=== PATIENT | male | born 1980 | race African-American/Black ===

== ENCOUNTER 2017-02-02 13:13 | Emergency (ER) | payer BC ==
[2017-02-02] MEDS ORDERED: Aspirin Low Dose CHEW TAB* 81 MG PO ONE (13:32)
[2017-02-02 13:50] LABS: Hematocrit 43 % (42-52); Hemoglobin 14.2 g/dl (14.0-18.0); Mean Corpuscular HGB Conc 33 g/dl (31-36); Mean Corpuscular Hemoglobin 29 pg (27-31); Mean Corpuscular Volume 88 fL (80-94); Mean Platelet Volume 11 um3 (7.4-10.4); Red Blood Count 4.85 10^6/ul (4.0-5.4); Red Cell Distribution Width 14 % (10.5-15); White Blood Count 4.9 10^3/ul (3.5-10.8)
[2017-02-02 14:06] LABS: Albumin 4.6 g/dL (3.2-5.2); BUN/Creatinine Ratio 11.2 (8-20); Calcium 9.7 mg/dL (8.6-10.3); EGFR Non-African American 77.8 (>60); Globulin 3.1 g/dL (2-4); Potassium 3.6 mmol/L (3.5-5.0); Total Bilirubin 0.5 mg/dL (0.2-1.0); Total Protein 7.7 g/dL (6.4-8.9)
--- NOTE | 2017-02-02 15:24 | RAD ---
INDICATION: Chest pain COMPARISON: None TECHNIQUE: PA and lateral views of the chest were obtained. FINDINGS: The heart and mediastinum are normal in size and contour. The lungs are grossly clear. There is no evidence of large pleural effusion. Visualized bones are normal for the patient's age. There is no radiographic evidence of free air beneath the diaphragm IMPRESSION: No radiographic evidence of acute cardiopulmonary disease.
[2017-02-02 17:15] VITALS: BP 147/92
--- NOTE | 2017-02-02 17:56 | ED ---
Annie Lovell Anna, scribed for Benedict Elias MD on 02/02/17 at 1332 . HPI Chest Pain - HPI Summary HPI Summary: Patient is a 37 y/o male coming to [facility] presenting with left-sided chest pain that began at 1100 while he was sitting at work. He describes the pain as severity 10/10 two hours ago, now down to 6/10. He additionally felt lightheaded and felt squeezing pain down his left arm. The pain is not exacerbated by deep breaths. He has been seeing Dr. Torre because of heart palpitations at night and is supposed to start on HTN medication if his HTN does not resolve in two weeks. - History of Current Complaint Chief Complaint: EDChestPainROMI Time Seen by Provider: 02/02/17 13:21 Hx Obtained From: Patient Onset/Duration: Started Hours Ago, Still Present Pain Intensity: 6 Pain Scale Used: 0-10 Numeric - Allergy/Home Medications Allergies/Adverse Reactions: Allergies Allergy/AdvReac Type Severity Reaction Status Date / Time Bee Venom Allergy SHOCK Verified 10/10/14 13:24 PEANUTS Allergy SHOCK Uncoded 10/10/14 13:24 Home Medications: Home Medications Cholecalciferol TAB* [Vitamin D TAB*] 1,000 unit PO Q21D 02/02/17 [History Confirmed 02/02/17] Epinephrine [Epipen 2-Chadwick] 0.3 mg IM ONCE PRN 02/02/17 [History Confirmed ] PMH/Surg Hx/FS Hx/Imm Hx Endocrine/Hematology History: Denies: Hx Diabetes Cardiovascular History: Reports: Hx Hypertension Denies: Hx Hypotension, Hx Pacemaker/ICD, Other Cardiovascular Problems/ Disorders Sensory History: Reports: Hx Contacts or Glasses - GLASSES Denies: Hx Hearing Aid Opthamlomology History: Reports: Hx Contacts or Glasses - GLASSES Psychiatric History: Denies: Hx Panic Disorder - Surgical History Surgery Procedure, Year, and Place: TONSILS Hx Anesthesia Reactions: No Infectious Disease History: No Infectious Disease History: Denies: Traveled Outside the [place] in Last 30 Days - Family History Known Family History: Positive: Hypertension - Hx in father Negative: Cardiac Disease - Social History Occupation: Employed Full-time Lives: With Family Alcohol Use: Daily Alcohol Amount: 1 PER DAY Substance Use Type: Reports: Marijuana Substance Use Comment - Amount & Last Used: DAILY Smoking Status (MU): Former Smoker Amount Used/How Often: 20-30 CIGS TOTAL Have You Smoked in the Last Year: No Review of Systems Positive: Chest Pain Positive: Arthralgia Psychological: Normal All Other Systems Reviewed And Are Negative: Yes Physical Exam Triage Information Reviewed: Yes Vital Signs On Initial Exam: Initial Vitals Temp Pulse Resp BP Pulse Ox 98.4 F 58 16 157/78 100 02/02/17 13:16 02/02/17 13:16 02/02/17 13:16 02/02/17 13:16 02/02/17 13:16 Vital Signs Reviewed: Yes Appearance: Positive: Well-Appearing, No Pain Distress Skin: Positive: Warm, Skin Color Reflects Adequate Perfusion, Dry Head/Face: Positive: Normal Head/Face Inspection Eyes: Positive: Normal ENT: Positive: Normal ENT inspection Neck: Positive: Supple, Nontender Respiratory/Lung Sounds: Positive: Clear to Auscultation, Breath Sounds Present Cardiovascular: Positive: RRR Abdomen Description: Positive: Nontender, Soft Bowel Sounds: Positive: Present Musculoskeletal: Positive: Normal Neurological: Positive: Normal Psychiatric: Positive: Affect/Mood Appropriate Diagnostics - Vital Signs Vital Signs Temp Pulse Resp BP Pulse Ox 02/02/17 13:16 98.4 F 58 16 157/78 100 - Laboratory Lab Results: Lab Results 02/02/17 02/02/17 02/02/17 Range/Units 13:35 13:35 13:35 WBC 4.9 (3.5-10.8) 10^3/ul RBC 4.85 (4.0-5.4) 10^6/ul Hgb 14.2 (14.0-18.0) g/dl Hct 43 (42-52) % MCV 88 (80-94) fL MCH 29 (27-31) pg MCHC 33 (31-36) g/dl RDW 14 (10.5-15) % Plt Count 187 (150-450) 10^3/ul MPV 11 H (7.4-10.4) um3 Neut % (Auto) 47.7 (38-83) % Lymph % (Auto) 37.9 (25-47) % [place] % (Auto) 9.2 H (1-9) % Eos % (Auto) 4.5 (0-6) % Baso % (Auto) 0.7 (0-2) % Absolute Neuts (auto) 2.4 (1.5-7.7) 10^3/ul Absolute Lymphs (auto) 1.9 (1.0-4.8) 10^3/ul Absolute Monos (auto) 0.5 (0-0.8) 10^3/ul Absolute Eos (auto) 0.2 (0-0.6) 10^3/ul Absolute Basos (auto) 0 (0-0.2) 10^3/ul Absolute Nucleated RBC 0.01 10^3/ul Nucleated RBC % 0.2 D-Dimer, Quantitative (Less Than 230) ng/mL Sodium 137 (133-145) mmol/L Potassium 3.6 (3.5-5.0) mmol/L Chloride 103 (101-111) mmol/L Carbon Dioxide 27 (22-32) mmol/L Anion Gap 7 (2-11) mmol/L BUN 12 (6-24) mg/dL Creatinine 1.07 (0.67-1.17) mg/dL Est GFR ( Amer) 100.0 (>60) Est GFR (Non-Af Amer) 77.8 (>60) BUN/Creatinine Ratio 11.2 (8-20) Glucose 101 H (70-100) mg/dL Lactic Acid 1.0 (0.5-2.0) mmol/L Calcium 9.7 (8.6-10.3) mg/dL Total Bilirubin 0.50 (0.2-1.0) mg/dL AST 29 (13-39) U/L ALT 38 (7-52) U/L Alkaline Phosphatase 92 (34-104) U/L Troponin I 0.00 (<0.04) ng/mL Total Protein 7.7 (6.4-8.9) g/dL Albumin 4.6 (3.2-5.2) g/dL Globulin 3.1 (2-4) g/dL Albumin/Globulin Ratio 1.5 (1-3) 02/02/17 02/02/17 Range/Units 13:35 16:02 WBC (3.5-10.8) 10^3/ul RBC (4.0-5.4) 10^6/ul Hgb (14.0-18.0) g/dl Hct (42-52) % MCV (80-94) fL MCH (27-31) pg MCHC (31-36) g/dl RDW (10.5-15) % Plt Count (150-450) 10^3/ul MPV (7.4-10.4) um3 Neut % (Auto) (38-83) % Lymph % (Auto) (25-47) % [place] % (Auto) (1-9) % Eos % (Auto) (0-6) % Baso % (Auto) (0-2) % Absolute Neuts (auto) (1.5-7.7) 10^3/ul Absolute Lymphs (auto) (1.0-4.8) 10^3/ul Absolute Monos (auto) (0-0.8) 10^3/ul Absolute Eos (auto) (0-0.6) 10^3/ul Absolute Basos (auto) (0-0.2) 10^3/ul Absolute Nucleated RBC 10^3/ul Nucleated RBC % D-Dimer, Quantitative < 200 (Less Than 230) ng/mL Sodium (133-145) mmol/L Potassium (3.5-5.0) mmol/L Chloride (101-111) mmol/L Carbon Dioxide (22-32) mmol/L Anion Gap (2-11) mmol/L BUN (6-24) mg/dL Creatinine (0.67-1.17) mg/dL Est GFR ( Amer) (>60) Est GFR (Non-Af Amer) (>60) BUN/Creatinine Ratio (8-20) Glucose (70-100) mg/dL Lactic Acid (0.5-2.0) mmol/L Calcium (8.6-10.3) mg/dL Total Bilirubin (0.2-1.0) mg/dL AST (13-39) U/L ALT (7-52) U/L Alkaline Phosphatase (34-104) U/L Troponin I 0.00 (<0.04) ng/mL Total Protein (6.4-8.9) g/dL Albumin (3.2-5.2) g/dL Globulin (2-4) g/dL Albumin/Globulin Ratio (1-3) Result Diagrams: 02/02/17 13:35 02/02/17 13:35 Lab Statement: Any lab studies that have been ordered have been reviewed, and results considered in the medical decision making process. - Radiology CXR Xray Interpretation: No Acute Changes Radiology Interpretation Completed By: Radiologist - IMPRESSION: No radiographic evidence of acute cardiopulmonary disease. - EKG 1323 Cardiac Rate: NL EKG Rhythm: Sinus Rhythm ST Segment: Normal Ectopy: None Re-Evaluation - Re-Evaluation First Eval Re-Evaluation Time: 15:47 Comment: Discussed results and plan of care with patient and family. Patient and family agree with plan. Second Eval Re-Evaluation Time: 16:51 Comment: Discussed results of repeat troponin and plan for follow-up care. Patient and family agree to follow up with PCP. Chest Pain Course/Dx - Course Course Of Treatment: Mr. Wong presented with an atypical pain, He has a Hx of HTN that is being watched at this point. His W/U including two trops and ecg was negative and his EDACS score was low risk at 13. I recommended F/U with Dr. Echavarria. - Diagnoses Provider Diagnoses: Chest pain Discharge - Discharge Plan Condition: Stable Disposition: HOME Patient Education Materials: Chest Pain (ED) Referrals: Lopez Kilgore MD [Primary Care Provider] - Additional Instructions: Follow up with primary care provider within 48 hours. Return to the emergency department for any new or worsening symptoms. The documentation as recorded by the Annie contreras Anna accurately reflects the service I personally performed and the decisions made by , Benedict Elias MD.
== END 2017-02-02 17:13 | disposition home or self-care (01) ==
LOC: ED 13:13
DX: R07.9 Chest pain, unspecified (principal); Z87.891 Personal history of nicotine dependence
CPT/HCPCS: 36415; 71020; 80053; 83605; 84484; 85025; 85379; 93005; 99283; A9270-GY

== ENCOUNTER 2018-08-17 20:23 | Emergency (ER) | payer BC ==
[2018-08-17 20:37] VITALS: BP 138/85
[2018-08-17] MEDS ORDERED: Albuterol 2.5 MG/3 ML NEB.SOL* (0.083%) INH ONE (20:41)
--- NOTE | 2018-08-17 20:49 | ED ---
Palpitations / Dysrhythmia - HPI Summary HPI Summary: patient complaining of palpitations and sweats, chills in the last few days. had respiratory illness one week ago and since that time has noted some wheezing - History of Current Complaint Chief Complaint: UCGeneralIllness Time Seen by Provider: 08/17/18 20:31 Hx Obtained From: Patient Onset/Duration: Sudden Onset, Lasting Days Timing: Intermittent Episodes Lasting: - 10-15 min utes Severity Initially: Moderate Severity Currently: None Character: Fluttering Aggravating: Nothing Alleviating: Nothing Associated Signs & Symptoms: Negative - Risk Factors Cardiac: Negative Pulmonary Embolism: Negative Atrial Fibrillation: Negative - Allergy/Home Medications Allergies/Adverse Reactions: Allergies Allergy/AdvReac Type Severity Reaction Status Date / Time MS Bee Venom [Bee Venom] Allergy SHOCK Verified 08/17/18 20:30 PEANUTS Allergy SHOCK Uncoded 08/17/18 20:30 PMH/Surg Hx/FS Hx/Imm Hx Previously Healthy: Yes Endocrine/Hematology History: Denies: Hx Diabetes Cardiovascular History: Reports: Hx Hypertension Denies: Hx Hypotension, Hx Pacemaker/ICD, Other Cardiovascular Problems/ Disorders Sensory History: Reports: Hx Contacts or Glasses - GLASSES Denies: Hx Hearing Aid Opthamlomology History: Reports: Hx Contacts or Glasses - GLASSES Psychiatric History: Denies: Hx Panic Disorder - Surgical History Surgery Procedure, Year, and Place: TONSILS Hx Anesthesia Reactions: No Infectious Disease History: No Infectious Disease History: Denies: Traveled Outside the [place] in Last 30 Days - Family History Known Family History: Positive: Hypertension - Hx in father Negative: Cardiac Disease - Social History Alcohol Use: Weekly Alcohol Amount: 1 PER DAY Substance Use Type: Reports: Marijuana Substance Use Comment - Amount & Last Used: DAILY Smoking Status (MU): Former Smoker Amount Used/How Often: 20-30 CIGS TOTAL Have You Smoked in the Last Year: No Review of Systems Constitutional: Negative Eyes: Negative ENT: Negative Positive: Palpitations Positive: Other - wheezing Gastrointestinal: Negative Genitourinary: Negative Musculoskeletal: Negative Skin: Negative Neurological: Negative Psychological: Normal All Other Systems Reviewed And Are Negative: Yes Physical Exam Triage Information Reviewed: Yes Vital Signs On Initial Exam: Initial Vitals Temp Pulse Resp BP Pulse Ox 37.1 C 75 18 138/85 97 08/17/18 20:31 08/17/18 20:31 08/17/18 20:31 08/17/18 20:31 08/17/18 20:31 Vital Signs Reviewed: Yes Appearance: Positive: Well-Appearing Skin: Positive: Warm, Dry Head/Face: Positive: Normal Head/Face Inspection Eyes: Positive: Normal ENT: Positive: Normal ENT inspection Neck: Positive: Supple Respiratory/Lung Sounds: Positive: Wheezes - bilateral expiratory wheezing, few rales left lower lobe Cardiovascular: Positive: S1, S2 Abdomen Description: Positive: Nontender Bowel Sounds: Positive: Present Musculoskeletal: Positive: Normal Neurological: Positive: Normal Diagnostics - Vital Signs Vital Signs Temp Pulse Resp BP Pulse Ox 08/17/18 20:31 37.1 C 75 18 138/85 97 - Laboratory Lab Statement: Any lab studies that have been ordered have been reviewed, and results considered in the medical decision making process. Course/Dx - Diagnoses Provider Diagnoses: Heart palpitations, Asthma, Herpetic gingivostomatitis Discharge - Sign-Out/Discharge Documenting (check all that apply): Patient Departure All imaging exams completed and their final reports reviewed: Yes - Discharge Plan Condition: Fair Disposition: HOME Prescriptions: Albuterol HFA INHALER* [Ventolin HFA Inhaler*] 2 puff INH Q6H PRN #1 mdi PRN Reason: Cough amLODIPine TAB* [Norvasc 5 mg TAB*] 10 mg PO DAILY #90 tab Lisinopril 10 mg PO DAILY #90 tablet ValACYclovir (*) [Valtrex 1 GM(*)] 2 gm PO BID #4 tab Patient Education Materials: Heart Palpitations (ED), Asthma (DC) Referrals: Lopez Kilgore MD [Primary Care Provider] - - Billing Disposition and Condition Condition: FAIR Disposition: Home
--- NOTE | 2018-08-18 07:57 | RAD ---
Indication: Cough, fever. 2 views the chest including dual energy PA views demonstrate no mediastinal shift. Heart is of normal size and configuration. Lung basurto are clear. When compared to previous exam of February 02, 2017 no significant change is noted. IMPRESSION: No active cardiopulmonary disease is noted. R0
== END 2018-08-17 21:40 | disposition home or self-care (01) ==
LOC: UCEAST 20:23
DX: R00.2 Palpitations (principal); J45.909 Unspecified asthma, uncomplicated; B00.2 Herpesviral gingivostomatitis and pharyngotonsillitis; Z91.030 Bee allergy status; Z91.010 Allergy to peanuts; Z87.891 Personal history of nicotine dependence
CPT/HCPCS: 71046; 93005; 99212; G0463

== ENCOUNTER 2019-05-30 14:10 | Emergency (ER) | payer BC ==
[2019-05-30 14:45] LABS: Hematocrit 43 % (42-52); Hemoglobin 14.7 g/dL (14.0-18.0); Mean Corpuscular HGB Conc 34 g/dL (31-36); Mean Corpuscular Hemoglobin 30 pg (27-31); Mean Corpuscular Volume 90 fL (80-94); Platelet Count 231 10^3/uL (150-450); Red Blood Count 4.84 10^6 /uL (4.18-5.48); Red Cell Distribution Width 14 % (10-15); White Blood Count 6.2 10^3/uL (3.5-10.8)
[2019-05-30 14:47] LABS: INR 0.93 (0.82-1.09)
[2019-05-30 15:21] LABS: ABS Eosinophils 0.2 10^3/ul (0-0.6); ABS Lymphocytes 1.9 10^3/ul (1.0-4.8); ABS Monocytes 0.5 10^3/ul (0-0.8); ABS Neutrophils 3.5 10^3/ul (1.5-7.7); Eosinophil % 3.6 %; Lymphocyte % 31.1 %; Nucleated Red Blood Cells % 0.1
[2019-05-30 15:37] LABS: Albumin 4.9 g/dL (3.2-5.2); Albumin/Globulin Ratio 1.5 (1-3); BUN/Creatinine Ratio 13.9 (8-20); Calcium 9.9 mg/dL (8.6-10.3); EGFR African American 92.1 (>60); EGFR Non-African American 76.1 (>60); Globulin 3.3 g/dL (2-4); Potassium 3.9 mmol/L (3.5-5.0); Total Bilirubin 0.6 mg/dL (0.2-1.0); Total Protein 8.2 g/dL (6.4-8.9)
[2019-05-30 17:17] VITALS: BP 140/74
--- NOTE | 2019-05-30 17:34 | ED ---
HPI Chest Pain - HPI Summary HPI Summary: Patient is a 39-year-old male with a history of pulmonary hypertension presenting to the ED with sudden onset left-sided chest pain radiating into the left arm which is acute onset, lasting approximately 10 minutes, rated at 10/10 and currently rated a 1/10. He denies any SOB. He denies any diaphoresis or recent illness. He states symptoms occurred while sitting at work. He did not take any medications for relief. He does state he is on lisinopril and amlodipine daily and has been for 3 years since his diagnosis of pulmonary hypertension. Denies any other significant personal history. He states he feels well now, denying any other symptoms including headache, nausea, vomiting , chest pain, shortness of breath, diaphoresis. Vital signs are stable on arrival. He states he is here as his work made him come due to his symptoms. - History of Current Complaint Chief Complaint: EDChestPainROMI Time Seen by Provider: 05/30/19 14:41 Hx Obtained From: Patient Onset/Duration: Started Hours Ago Timing: Constant Initial Severity: Moderate Current Severity: Mild Pain Intensity: 8 Pain Scale Used: 0-10 Numeric Chest Pain Location: Left Anterior Chest Pain Radiates: Yes Chest Pain Radiates To:: Arm Character: Dull/Aching Aggravating Factor(s): Nothing Alleviating Factor(s): Spontaneous Resolution Associated Signs and Symptoms: Positive: Negative - Risk Factors Pulmonary Embolism Risk Factors: Negative TAD Risk Factors: Negative - Allergy/Home Medications Allergies/Adverse Reactions: Allergies Allergy/AdvReac Type Severity Reaction Status Date / Time bee venom protein (honey bee) Allergy Anaphylatic Verified 08/25/18 19:55 Shock peanut Allergy Anaphylatic Verified 08/25/18 19:55 Shock Home Medications: Home Medications Lisinopril TAB* [Prinivil TAB*] 10 mg PO DAILY 05/30/19 [History Confirmed 05/30] PMH/Surg Hx/FS Hx/Imm Hx Previously Healthy: Yes Endocrine/Hematology History: Denies: Hx Diabetes Cardiovascular History: Reports: Hx Hypertension Denies: Hx Hypotension, Hx Pacemaker/ICD, Other Cardiovascular Problems/ Disorders Sensory History: Reports: Hx Contacts or Glasses - GLASSES Denies: Hx Hearing Aid Opthamlomology History: Reports: Hx Contacts or Glasses - GLASSES Psychiatric History: Denies: Hx Panic Disorder - Surgical History Surgery Procedure, Year, and Place: TONSILS Hx Anesthesia Reactions: No - Immunization History Hx Pertussis Vaccination: No Immunizations Up to Date: Yes Infectious Disease History: No Infectious Disease History: Denies: Traveled Outside the [place] in Last 30 Days - Family History Known Family History: Positive: Hypertension - Hx in father Negative: Cardiac Disease - Social History Occupation: Employed Full-time Lives: With Family Alcohol Use: Daily Alcohol Amount: 2 glasses a week Hx Substance Use: No Substance Use Type: Reports: None Substance Use Comment - Amount & Last Used: DAILY Hx Tobacco Use: No Smoking Status (MU): Never Smoked Tobacco Amount Used/How Often: 20-30 CIGS TOTAL Have You Smoked in the Last Year: No Review of Systems Constitutional: Negative Negative: Fever, Chills, Fatigue, Skin Diaphoresis Positive: Chest Pain. Negative: Palpitations Negative: Shortness Of Breath, Cough Negative: Abdominal Pain, Vomiting, Diarrhea, Nausea Negative: Arthralgia, Myalgia Negative: Rash, Bruising Neurological: Negative Negative: Headache, Weakness, Paresthesia All Other Systems Reviewed And Are Negative: Yes Physical Exam Triage Information Reviewed: Yes Vital Signs On Initial Exam: Initial Vitals Temp Pulse Resp BP Pulse Ox 98.2 F 80 18 150/80 100 05/30/19 14:11 05/30/19 14:11 05/30/19 14:11 05/30/19 14:11 05/30/19 14:11 Vital Signs Reviewed: Yes Appearance: Positive: Well-Appearing, Well-Nourished Skin: Positive: Warm, Skin Color Reflects Adequate Perfusion Head/Face: Positive: Normal Head/Face Inspection Eyes: Positive: EOMI, Conjunctiva Clear Neck: Positive: Supple, No Lymphadenopathy Respiratory/Lung Sounds: Positive: Clear to Auscultation, Breath Sounds Present Cardiovascular: Positive: RRR, Pulses are Symmetrical in both Upper and Lower Extremities Musculoskeletal: Positive: Normal, Strength/ROM Intact Neurological: Positive: Alert, Oriented to Person Place, Time Psychiatric: Positive: Affect/Mood Appropriate Diagnostics - Vital Signs Vital Signs Temp Pulse Resp BP Pulse Ox 05/30/19 17:08 62 13 140/74 99 05/30/19 17:00 78 16 99 05/30/19 16:50 71 14 151/102 99 05/30/19 16:20 72 16 148/74 99 05/30/19 16:01 72 17 100 05/30/19 15:50 72 15 123/78 99 05/30/19 15:20 66 20 132/84 98 05/30/19 14:11 98.2 F 80 18 150/80 100 - Laboratory Lab Results: Lab Results 05/30/19 05/30/19 05/30/19 Range/Units 14:26 14:26 14:26 WBC 6.2 (3.5-10.8) 10^3/uL RBC 4.84 (4.18-5.48) 10^6 /uL Hgb 14.7 (14.0-18.0) g/dL Hct 43 (42-52) % MCV 90 (80-94) fL MCH 30 (27-31) pg MCHC 34 (31-36) g/dL RDW 14 (10-15) % Plt Count 231 (150-450) 10^3/uL MPV 10.0 (7.4-10.4) fL Neut % (Auto) 56.1 % Lymph % (Auto) 31.1 % [place] % (Auto) 8.5 % Eos % (Auto) 3.6 % Baso % (Auto) 0.7 % Absolute Neuts (auto) 3.5 (1.5-7.7) 10^3/ul Absolute Lymphs (auto) 1.9 (1.0-4.8) 10^3/ul Absolute Monos (auto) 0.5 (0-0.8) 10^3/ul Absolute Eos (auto) 0.2 (0-0.6) 10^3/ul Absolute Basos (auto) 0.0 (0-0.2) 10^3/ul Absolute Nucleated RBC 0.0 10^3/ul Nucleated RBC % 0.1 INR (Anticoag Therapy) 0.93 (0.82-1.09) Sodium 137 (135-145) mmol/L Potassium 3.9 (3.5-5.0) mmol/L Chloride 101 (101-111) mmol/L Carbon Dioxide 24 (22-32) mmol/L Anion Gap 12 H (2-11) mmol/L BUN 15 (6-24) mg/dL Creatinine 1.08 (0.67-1.17) mg/dL Est GFR ( Amer) 92.1 (>60) Est GFR (Non-Af Amer) 76.1 (>60) BUN/Creatinine Ratio 13.9 (8-20) Glucose 97 (70-100) mg/dL Calcium 9.9 (8.6-10.3) mg/dL Total Bilirubin 0.60 (0.2-1.0) mg/dL AST 25 (13-39) U/L ALT 21 (7-52) U/L Alkaline Phosphatase 76 (34-104) U/L Troponin I 0.00 (<0.04) ng/mL Total Protein 8.2 (6.4-8.9) g/dL Albumin 4.9 (3.2-5.2) g/dL Globulin 3.3 (2-4) g/dL Albumin/Globulin Ratio 1.5 (1-3) Result Diagrams: 05/30/19 14:26 05/30/19 14:26 Lab Statement: Any lab studies that have been ordered have been reviewed, and results considered in the medical decision making process. Chest Pain Course/Dx - Course Course Of Treatment: During this course of treatment, the patient's evaluated for left-sided chest pain radiating to the left arm which occurred approximately 1 hour [employer]. EMS brought him to the ED. He currently remains asymptomatic. History of pulmonary hypertension. Labs obtained which show normal white count including and negative/normal troponin of 0.00. Chest x-ray obtained which was negative. All of the labs normal. This patient is feeling well, nondiaphoretic, nontoxic appearing, no chest pain or shortness of breath and denies any symptoms at this time, he will be discharged home with angina. He will follow up closely with Dr. Yeung, cardiology. - Chest Pain Differential Diagnosis/HQI/PQRI: Acute [place], Angina, Chest Wall - Diagnoses Provider Diagnoses: Angina at rest Discharge - Sign-Out/Discharge Documenting (check all that apply): Patient Departure Patient Received Moderate/Deep Sedation with Procedure: No - Discharge Plan Condition: Stable Disposition: HOME Patient Education Materials: Angina (ED) Referrals: Pradip Yeung DO [Medical Doctor] - Rufino Gaston [Primary Care Provider] - Additional Instructions: Please follow up with Dr. Yeung - Billing Disposition and Condition Condition: STABLE Disposition: Home
== END 2019-05-30 17:28 | disposition home or self-care (01) ==
LOC: ED 14:10
DX: I20.9 Angina pectoris, unspecified (principal); I10 Essential (primary) hypertension; Z79.899 Other long term (current) drug therapy; Z87.891 Personal history of nicotine dependence
CPT/HCPCS: 36415; 71046; 80053; 84484; 85025; 85610; 93005; 99282

== ENCOUNTER 2020-02-06 11:19 | Emergency (ER) | payer BC ==
--- NOTE | 2020-02-06 11:53 | UC ---
Eye Complaint HPI - HPI Summary HPI Summary: 40 yo male presents with eye redness. He tells me that for the last 2 days has noticed his left eye has been itchy. Today he noticed it was red, increased watery, and a little swollen on the eyelids. He wears glasses, but no contacts. No recent illness. Denies fever, chills, sinus symptoms, sore throat, vision changes. - History of Current Complaint Stated Complaint: EYE ISSUE Time Seen by Provider: 02/06/20 11:53 Hx Obtained From: Patient Onset/Duration: Gradual Onset Severity Initially: Mild Severity Currently: Mild Pain Intensity: 4 Pain Scale Used: 0-10 Numeric - Allergies/Home Medications Allergies/Adverse Reactions: Allergies Allergy/AdvReac Type Severity Reaction Status Date / Time bee venom protein (honey bee) Allergy Anaphylatic Verified 08/25/18 19:55 Shock peanut Allergy Anaphylatic Verified 08/25/18 19:55 Shock Home Medications: Home Medications EPINEPHrine [Epipen 2-Chadwick] 0.3 mg IM ONCE PRN 02/02/17 [History Confirmed ] amLODIPine TAB* [Norvasc 5 mg TAB*] 10 mg PO DAILY #90 tab 08/17/18 [Rx Confirmed 05/30/19] Ibuprofen TAB* [Motrin TAB* 600 MG] 600 mg PO Q6H PRN #30 tab 08/25/18 [Rx Confirmed 05/30/19] Lisinopril TAB* [Prinivil TAB*] 10 mg PO DAILY 05/30/19 [History Confirmed 05/30] Ofloxacin 0.3% (Eye Drop) [Ocuflox OPTH 0.3% (Eye Drop)] 1 - 2 drop LEFT EYE QID 7 Days #1 btl 02/06/20 [Rx] PMH/Surg Hx/FS Hx/Imm Hx Cardiovascular History: Hypertension - Surgical History Surgical History: Yes Surgery Procedure, Year, and Place: TONSILS - Family History Known Family History: Positive: Hypertension - Hx in father Negative: Cardiac Disease - Social History Lives: With Family Alcohol Use: Daily Alcohol Amount: 2 glasses a week Substance Use Type: None Substance Use Comment - Amount & Last Used: DAILY Smoking Status (MU): Never Smoked Tobacco Amount Used/How Often: 20-30 CIGS TOTAL Have You Smoked in the Last Year: No When Did the Patient Quit Smoking/Using Tobacco: 13 YEARS AGO Review of Systems All Other Systems Reviewed And Are Negative: No Constitutional: Positive: Negative Skin: Positive: Negative Eyes: Positive: Drainage, Eye Redness ENT: Positive: Negative Respiratory: Positive: Negative Cardiovascular: Positive: Negative Neurological/Mental Status: Positive: Negative Psychological: Positive: Negative Physical Exam - Summary Physical Exam Summary: GENERAL: WDWN. No pain distress. SKIN: No rashes, sores, lesions, or open wounds. HEENT: Head: AT/NC Eyes: EOM intact. PERRLA. LEFT EYE: Mild scleral injection. Conjunctiva with mild erythema and inflammation. Mild clear discharge. RIGHT EYE : Conjunctiva clear without inflammation or discharge. No FBs appreciated Nose: NTTP maxillary and frontal sinus. NECK: Supple. Nontender. No lymphadenopathy. CHEST: No accessory muscle use. Breathing comfortably and in no distress. CV: Pulses intact. Cap refill <2seconds NEURO: Alert. PSYCH: Age appropriate behavior. Triage Information Reviewed: Yes Vital Signs: Vital Signs: Temp Pulse Resp BP Pulse Ox 97.7 F 61 16 138/64 98 02/06/20 12:09 02/06/20 12:09 02/06/20 12:09 02/06/20 12:09 02/06/20 12:09 Vital Signs Reviewed: Yes Eye Complaint Course/Dx - Course Course Of Treatment: Left conjunctivitis - Differential Dx/Diagnosis Provider Diagnosis: Conjunctivitis Discharge ED - Sign-Out/Discharge Documenting (check all that apply): Patient Departure All imaging exams completed and their final reports reviewed: No Studies - Discharge Plan Condition: Stable Disposition: HOME Prescriptions: Ofloxacin 0.3% (Eye Drop) [Ocuflox OPTH 0.3% (Eye Drop)] 1 - 2 drop LEFT EYE QID 7 Days #1 btl Patient Education Materials: Conjunctivitis (ED) Referrals: Rufino Gaston [Primary Care Provider] - Additional Instructions: If you develop a fever, shortness of breath, chest pain, new or worsening symptoms - please call your PCP or go to the ED immediately. [facility] pharmacy is open 830am to 9pm - Billing Disposition and Condition Condition: STABLE Disposition: Home
[2020-02-06 12:12] VITALS: BP 138/64
== END 2020-02-06 12:30 | disposition home or self-care (01) ==
LOC: UCEAST 11:19
DX: H10.32 Unspecified acute conjunctivitis, left eye (principal); I10 Essential (primary) hypertension; Z79.899 Other long term (current) drug therapy; Z91.030 Bee allergy status; Z91.010 Allergy to peanuts; Z87.891 Personal history of nicotine dependence
CPT/HCPCS: 99212; G0463